=== PATIENT | female | born 1955 | race Caucasian/White ===

== ENCOUNTER 2018-09-30 06:26 | Emergency (ER) | payer OTHER ==
[~2018-09-30] VITALS: Ht 162.6 cm; Wt 61.2 kg
[~2018-09-30 06:26] MED LIST: BENZ100A PO; CHOL10002 PO; D3-20002000 UNIT PO; Excedrin Extra1 EACH; GABA300 PO; GUAI120S1 PO; LOSHYD; Nasonex17 GM; Norco 5-325 Ta1 EACH PO; Sudogest30 MG PO; ZESTORETIC 20-121 EA PO
[2018-09-30] MEDS ORDERED: PSEU120ER PO (07:40)
[2018-09-30] MEDS ORDERED: Augmentin 875-1 EACH PO (07:40)
[2018-10-01] MEDS ORDERED: Floxin10 ML LEFTEAR (16:45)
== END 2018-09-30 07:56 | disposition home or self-care (01) ==
LOC: ER 06:26
DX: H66.91 Otitis media, unspecified, right ear (principal); J06.9 Acute upper respiratory infection, unspecified; Z79.899 Other long term (current) drug therapy; I10 Essential (primary) hypertension
CPT/HCPCS: 99283

== ENCOUNTER 2018-10-01 15:23 | Emergency (ER) | payer OTHER ==
[~2018-10-01] VITALS: Ht 160 cm; Wt 62.6 kg
[~2018-10-01 15:23] MED LIST changes: +Augmentin 875-1 EACH PO; +PSEU120ER PO
[2018-10-01] MEDS ORDERED: Floxin10 ML LEFTEAR (16:45)
== END 2018-10-01 16:52 | disposition home or self-care (01) ==
LOC: ER 15:23
DX: H60.91 Unspecified otitis externa, right ear (principal); H72.91 Unspecified perforation of tympanic membrane, right ear; Z79.899 Other long term (current) drug therapy; I10 Essential (primary) hypertension
CPT/HCPCS: 99282

== ENCOUNTER → 2018-12-17 | Outpatient (CLI) | payer OTHER ==
[~2018-12-17] MED LIST changes: +Floxin10 ML LEFTEAR
[2018-12-17 15:06] LABS: BASOPHILS ABSOLUTE AUTO 0.05 K/mm3 (0.00-0.23); BASOPHILS PERCENT AUTO 1 % (0-2); EOSINOPHILS ABSOLUTE AUTO 0.07 K/mm3 (0.00-0.68); EOSINOPHILS PERCENT AUTO 1 % (0-6); Hematocrit 38.1 % (33.0-51.0); Hemoglobin 12.8 g/dL (11.5-16.0); IMMATURE GRAN ABSOLUTE AUTO 0.05 K/mm3 (0.00-0.10); IMMATURE GRAN PERCENT AUTO 1 % (0-1); LYMPHOCYTES PERCENT AUTO 22 % (21-46); MONOCYTES ABSOLUTE AUTO 0.49 K/mm3 (0.16-1.47); MONOCYTES PERCENT AUTO 5 % (4-13); Mean Corpuscular HGB 30.7 pg (26.0-34.0); Mean Corpuscular HGB Conc 33.6 g/dL (31.5-36.5); Mean Corpuscular Volume 91 fL (80-100); Mean Platelet Volume 9.9 fL (9.1-12.4); NEUTROPHILS ABSOLUTE AUTO 7.57 K/mm3 (1.96-9.15); NEUTROPHILS PERCENT AUTO 72 % (41-73); Platelet Count 500 K/mm3 (150-400); RDW Coefficient Variation 12.5 % (11.7-14.2); RDW Standard Deviation 41.7 fL (35.1-46.3); Red Blood Cell Count 4.17 M/mm3 (3.80-5.20); White Blood Cell Count 10.53 K/mm3 (4.00-11.30)
[2018-12-17 15:17] LABS: Alanine Aminotransfer (ALT/SGP 83 U/L (12-78); Albumin, Blood 3.5 g/dL (3.4-5.0); Albumin/Globulin Ratio 0.7 (0.8-1.8); Alk Phos 243 U/L (50-136); Anion Gap 6 mmol/L (6-16); Aspartate Aminotrans (AST/SGOT 35 U/L (12-37); Bilirubin, Total 0.2 mg/dL (0.1-1.0); Blood Urea Nitrogen 19 mg/dL (8-24); Bun/Creatinine Ratio 26.3 (12.0-20.0); CO2, Blood 25 mmol/L (21-32); Calcium, Blood 9.5 mg/dL (8.5-10.1); Chloride, Blood 106 mmol/L (98-108); Cholesterol 202 mg/dL (50-200); Creatinine, Blood 0.72 mg/dL (0.40-1.00); Glomerular Filtration Rate >60 (60-); Glucose, Blood 97 mg/dL (70-99); HDL Cholesterol 68 mg/dL (>39); LDL/HDL RATIO 1.6; Low Density Lipoprotein Chol 111 mg/dL (0-110); Potassium, Blood 4.1 mmol/L (3.5-5.5); Sodium, Blood 137 mmol/L (136-145); Total Protein, Blood 8.5 g/dL (6.4-8.2); Triglycerides 114 mg/dL (30-160); Very Low Density Lipoprot Chol 22 mg/dL (6-32)
== END | disposition home or self-care (01) ==
LOC: LAB 14:23 → LAB SHORT 14:23
PROVIDERS: Physician Assistant
DX: I10 Essential (primary) hypertension (principal)
CPT/HCPCS: 80053; 80061; 85025

== ENCOUNTER 2019-05-24 07:32 | Day surgery (SDC) | payer OTHER | END 2019-05-24 22:54 | disposition home or self-care (01) | LOC: MOI US 07:32 | DX: C50.811 Malignant neoplasm of overlapping sites of right female breast (principal); Z17.0 Estrogen receptor positive status [ER+] | CPT/HCPCS: 19083; 77065; 88305; 88360; A4648 ==

== ENCOUNTER → 2025-08-19 | Outpatient (CLI) | payer OTHER ==
[2025-08-19 18:07] LABS: BASOPHILS ABSOLUTE AUTO 0.06 K/mm3 (0.00-0.23); BASOPHILS PERCENT AUTO 1 % (0-2); EOSINOPHILS ABSOLUTE AUTO 0.10 K/mm3 (0.00-0.68); EOSINOPHILS PERCENT AUTO 1 % (0-6); Hematocrit 37.4 % (33.0-51.0); Hemoglobin 13.0 g/dL (11.5-16.0); IMMATURE GRAN ABSOLUTE AUTO 0.02 K/mm3 (0.00-0.10); IMMATURE GRAN PERCENT AUTO 0 % (0-1); LYMPHOCYTES ABSOLUTE AUTO 1.87 K/mm3 (0.84-5.20); LYMPHOCYTES PERCENT AUTO 26 % (21-46); MONOCYTES ABSOLUTE AUTO 0.62 K/mm3 (0.16-1.47); MONOCYTES PERCENT AUTO 9 % (4-13); Mean Corpuscular HGB Conc 34.8 g/dL (31.5-36.5); Mean Corpuscular Volume 91 fL (80-100); NEUTROPHILS ABSOLUTE AUTO 4.44 K/mm3 (1.96-9.15); NEUTROPHILS PERCENT AUTO 63 % (41-73); NRBC ABSOLUTE 0.00 K/mm3 (0.00-0.02); NRBC Auto 0.0 /100 WBC (0.0-0.2); Platelet Count 439 K/mm3 (150-400); RDW Coefficient Variation 11.9 % (11.7-14.2); RDW Standard Deviation 39.7 fL (35.1-46.3)
[2025-08-19 19:31] LABS: Alanine Aminotransfer (ALT/SGP 44 U/L (12-78); Albumin, Blood 3.9 g/dL (3.4-5.0); Albumin/Globulin Ratio 1.0 (0.8-1.8); Anion Gap 11 mmol/L (3-11); Aspartate Aminotrans (AST/SGOT 28 U/L (12-37); Bilirubin, Total 0.3 mg/dL (0.1-1.0); Blood Urea Nitrogen 23 mg/dL (8-24); CHOL/HDL RATIO 2.2; CO2, Blood 25 mmol/L (21-32); Calcium, Blood 9.6 mg/dL (8.5-10.1); Chloride, Blood 104 mmol/L (98-108); Cholesterol 198 mg/dL (50-200); Creatinine, Blood 0.85 mg/dL (0.40-1.00); Globulin, Blood 3.8 g/dL (2.2-4.0); Glucose, Blood 110 mg/dL (70-99); HDL Cholesterol 88 mg/dL (>39); LDL/HDL RATIO 1.0; Low Density Lipoprotein Chol 90 mg/dL (0-110); Potassium, Blood 3.9 mmol/L (3.5-5.5); Sodium, Blood 136 mmol/L (136-145); Thyroid Stimulating Hormone 0.902 uIU/mL (0.360-4.800); Total Protein, Blood 7.7 g/dL (6.4-8.2); Triglycerides 98 mg/dL (30-160); Uric Acid, Blood 4.9 mg/dL (2.6-6.0); Very Low Density Lipoprot Chol 19 mg/dL (6-32)
[2025-08-20 15:31] LABS: HEPATITIS C AB CIA INTERP Negative (Negative); HEPATITIS C ANTIBODY CIA INDEX 0.03 IV
[2025-08-20 16:27] LABS: HIV 1,2 COMBO ANTIGEN/ANTIBODY Negative (Negative)
[2025-08-20 20:15] LABS: RHEUMATOID FACTOR <10 IU/mL (0-14)
== END | disposition home or self-care (01) ==
LOC: LAB 11:05 → LAB SHORT 11:05
PROVIDERS: Physician Assistant
DX: Z11.4 Encounter for screening for human immunodeficiency virus [HIV] (principal); Z11.59 Encounter for screening for other viral diseases; M79.642 Pain in left hand; M79.641 Pain in right hand; Z79.899 Other long term (current) drug therapy
CPT/HCPCS: 80053; 80061; 82306; 83036; 84443; 84550; 85025; 86431; 86803; 87389